=== PATIENT | female | born 1945 | race Caucasian/White ===

== ENCOUNTER → 2016-08-03 | Outpatient (CLI) | payer MEDICARE, OTHER ==
[~2016-08-03] MED LIST: ALENDRONATE SOD70 MG PO; CIPRO500 MG PO; COLACE100 MG PO; CYMBALTA60 MG PO; DEXILANT60 MG PO; FIBER625 MG PO; FLAGYL500 MG PO; FLORASTOR250 MG PO; K-TAB 10MEQ10 MEQ PO; LIVALO4 MG PO; LUNESTA3 MG PO; MIRALAX17 GM PO; MULTAQ400 MG PO; MYRBETRIQ50 MG PO; NEURONTIN300 MG PO; SINGULAIR10 MG PO; ULTRAM50 MG PO; XARELTO20 MG PO
[2016-08-03 16:59] LABS: BASOPHIL # 0.1 K/uL (0.0-0.2); BASOPHIL % 1.1 %; BILIRUBIN URINE NEGATIVE (NEGATIVE); BLOOD URINE 50 /UL (NEGATIVE); EOSINOPHIL # 0.4 K/uL (0.0-0.5); EOSINOPHIL % 4.5 %; GLUCOSE URINE NEGATIVE (NEGATIVE); HEMATOCRIT 39.3 % (33.0-46.0); HEMOGLOBIN 12.8 g/dL (10.0-15.0); IMMATURE GRANULOCYTE % 0.2 %; KETONE URINE NEGATIVE (NEGATIVE); LEUKOCYTES URINE 100 /UL (NEGATIVE); LYMPHOCYTE # 2.3 K/uL (0.8-4.0); LYMPHOCYTE % 27.9 %; MCHC 32.6 gm/dL (32.0-36.5); MCV 95.2 fl (83.0-98.0); MONOCYTE # 0.8 K/uL (0.0-1.0); MPV 9.5 fl (9.4-12.4); NEUTROPHIL # (ANC) 4.7 K/uL (1.8-7.8); NEUTROPHIL % 56.3 %; NITRITE URINE NEGATIVE (NEGATIVE); NRBC % 0 /100WBC (0-0.00); PLATELET COUNT 347 K/uL (150-450); PROTEIN URINE NEGATIVE (NEGATIVE); RBC 4.13 M/uL (3.50-5.50); RDW-CV 12.4 % (11.9-14.6); UROBILINOGEN URINE NORMAL (NORMAL); WBC 8.3 K/uL (4.0-11.0)
[2016-08-03 17:10] LABS: COLOR URINE YELLOW (YELLOW); TURBIDITY URINE CLEAR (CLEAR)
[2016-08-03 17:12] LABS: BACTERIA URINE NEGATIVE (NEGATIVE)
== END | disposition disaster alternative care site (69) ==
LOC: LCNC 16:43
PROVIDERS: Internal Medicine Interventional Cardiology
DX: R53.83 Other fatigue (principal); N39.0 Urinary tract infection, site not specified

== ENCOUNTER → 2016-08-10 | Outpatient (CLI) | payer MEDICARE, OTHER | LOC: LGSMG 12:44 | DX: R31.9 Hematuria, unspecified (principal); E03.9 Hypothyroidism, unspecified | CPT/HCPCS: Q9967 ==

== ENCOUNTER → 2016-08-10 | Outpatient (CLI) | payer MEDICARE, OTHER | END | disposition disaster alternative care site (69) | LOC: GRAD 14:19 | DX: R10.9 Unspecified abdominal pain (principal); K57.92 Diverticulitis of intestine, part unspecified, without perforation or abscess without bleeding; K44.9 Diaphragmatic hernia without obstruction or gangrene; I70.90 Unspecified atherosclerosis; R50.9 Fever, unspecified ==

== ENCOUNTER → 2016-08-16 | Outpatient (CLI) | payer MEDICARE, OTHER | LOC: LGSMG 14:40 | DX: R19.7 Diarrhea, unspecified (principal) ==

== ENCOUNTER 2016-08-21 15:54 | Inpatient (IN) | payer MEDICARE, OTHER ==
[~2016-08-21] VITALS: Ht 160 cm; Wt 64.7 kg
--- NOTE | ~2016-08-21 | HP ---
PATIENT'S NAME: ANTONINO ADAMSON [facility] AGE: 70 Y [address] ROOM: [place] [address] LOCATION: [facility] ADMIT DATE: 08/21/2016 History & Physical DISCHARGE DATE: FAMILY PHYSICIAN: Rosio Guaman MD ATTENDING PHYSICIAN: Shannan ONEILL DATE OF SERVICE: CHIEF COMPLAINT: Abdominal pain and diarrhea. HISTORY OF PRESENT ILLNESS: The patient is a 70-year-old female with past medical history of C diff, AFib, GERD, and obstructive sleep apnea on CPAP, who presents here with abdominal pain and diarrhea. The patient reports that she started having abdominal pain with low-grade fever and loose stools a week ago. The patient was seen here by her primary care physician and had CT of the abdomen that showed evidence of segmental diverticulitis at the sigmoid colon. The patient was started on Bactrim and p.o. Flagyl. However, symptoms did not improve and the patient started having diarrhea. The patient was seen by her primary care physician today and the patient was noted to fail outpatient treatment, as she continued to have abdominal cramping, diarrhea, and low-grade fever. The patient reports that her abdominal pain is mostly around the periumbilical area and it is cramping in quality. She rates the pain 4/10 and is constant in nature. She reports that pain is exacerbated when her abdomen is palpated. She denies any nausea and vomiting. She also denies productive cough, chest pain, shortness of breath, bloody stool, weight loss, and night sweats. The patient reports a history of C diff in the past. MEDICAL HISTORY: 1. Paroxysmal AFib. 2. Fibromyalgia. 3. GERD. 4. Sleep apnea on CPAP. 5. History of C diff. SURGICAL HISTORY: Hysterectomy, tonsillectomy, cataract surgery, and cystoscopy. FAMILY HISTORY: Mother had diabetes mellitus type 2 and history of malignant polyp. SOCIAL HISTORY: Quit smoking in 1992. Denies alcohol use. 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 Lives PATIENT'S NAME: ANTONINO ADAMSON [facility] AGE: 70 Y [address] ROOM: [address] [address] LOCATION: [facility] ADMIT DATE: 08/21/2016 History & Physical DISCHARGE DATE: FAMILY PHYSICIAN: Rosio Guaman MD ATTENDING PHYSICIAN: Shannan ONEILL alone. She has 3 kids. MEDICATIONS: She takes: 1. Multaq. 2. Gabapentin. 3. Xarelto. 4. Duloxetine. 5. Montelukast. 6. Alendronate. ALLERGIES: SHE HAS SEVERE PENICILLIN ALLERGY COMPROMISED WITH BREATHING AND SEVERE RASH. REVIEW OF SYSTEMS: All systems have been reviewed and are negative except for what I mentioned in the HPI. PHYSICAL EXAMINATION: VITAL SIGNS: Temperature 98.6, blood pressure 152/60, respiratory rate 16, and pulse of 62. GENERAL APPEARANCE: The patient is alert and awake, in no acute distress. She does not appear toxic. HEAD: Normocephalic, atraumatic. EYES: Sclerae nonicteric. NOSE: No nasal discharge. MOUTH: Moist oral mucosa. CHEST: Clear to auscultation bilaterally. HEART: Regular rate and rhythm. No murmurs, rubs, or gallops. ABDOMEN: Soft. Mild tenderness diffuse. No guarding. No rebound. Bowel sounds are present. No peritoneal signs. SKIN: Warm to touch. INSURANCE LAW SPECIALIST: Alert and oriented x3. Motor and sensory grossly intact. MUSCULOSKELETAL: Range of motion intact. No obvious joint effusion. LABORATORY DATA: WBC of 9.3, hemoglobin 12.6, and platelets of 376. Sodium of 141, potassium 4, creatinine of 1, BUN of 10, and CO2 of 23. ASSESSMENT AND PLAN: 1. Diverticulitis. The patient is a 70-year-old female with past medical history of Clostridium difficile who presents here with failed outpatient treatment of diverticulitis. The patient was on Bactrim and Flagyl p.o. as an outpatient; however, the patient continued to have these symptoms PATIENT'S NAME: ANTONINO ADAMSON [facility] AGE: 70 Y [address] ROOM: [place] [address] LOCATION: [facility] ADMIT DATE: 08/21/2016 History & Physical DISCHARGE DATE: FAMILY PHYSICIAN: Rosio Guaman MD ATTENDING PHYSICIAN: Shannan ONEILL for 1 week now with involvement of diarrhea. Since the patient is allergic to penicillin, was started aztreonam and Flagyl IV. We will acquire CT abdomen with contrast to further investigate formation of abscess since the patient has failed outpatient treatment for 1 week. Continue IV fluids. 2. Diarrhea. The patient reports recent history of diarrhea. We will acquire Clostridium difficile antigen and stool. She is somewhat at risk for Clostridium difficile since she has a history of Clostridium difficile and currently use of antibiotics. 3. Dehydration, secondary to diarrhea. We will start the patient on IV fluids. 4. Paroxysmal atrial fibrillation. Continue Xarelto and Multaq. 5. Gastroesophageal reflux disease. Continue Protonix. 6. Sleep apnea. Continue CPAP. 7. Fibromyalgia, currently on gabapentin. Continue on the dose of gabapentin. Greater than 60 minutes was spent on the patient care. Greater than 50% of the time was spent in direct patient care and consultation. We will admit the patient for failed outpatient treatment of diverticulitis. We will admit the patient as an inpatient. Code status discussed at the time of admission is full code. MD VIDYA SYED/joshua /[id number] D: 033 T: 813 HISTORY & PHYSICAL
--- NOTE | ~2016-08-21 | DS ---
PATIENT'S NAME: ANTONINO ADAMSON [facility] AGE: 70 Y [address] ROOM: [id number] [place], [place] [address] LOCATION: [facility] ADMIT DATE: 08/21/2016 Discharge Summary DISCHARGE DATE: 08/24/2016 FAMILY PHYSICIAN: Rosio Guaman MD ATTENDING PHYSICIAN: Shannan Albarran ADDENDUM: HOSPITAL COURSE: The patient was admitted to the hospital as noted above with a presumptive diagnosis of acute diverticulitis. Preliminary evaluation including CT scan demonstrated mild diverticulitis by CT scan. She was also noted to have significant stool throughout the colon. Attempts were made to promote bowel hygiene with stool softeners. She only had minimal results with that. She did receive Colace, MiraLAX, and ultimately magnesium citrate. She did subsequently have some results with that and significant symptomatic relief. Her clinical condition gradually improved. She did receive broad-spectrum antibiotic therapy with Flagyl and aztreonam. Eventually, she was switched to oral Flagyl and Cipro and tolerated that well. By the end of the 4th day of her hospital stay, it was felt she would be stable enough for discharge to home with plans for close clinical followup with primary care provider, Dr. Guaman. DISCHARGE INSTRUCTIONS: DIET: Regular as tolerated. ACTIVITY: As tolerated. MEDICATIONS: 1. Flagyl 500 mg p.o. t.i.d. x5 more days. 2. Ciprofloxacin 500 mg p.o. b.i.d. x5 more days. 3. Colace 100 mg p.o. b.i.d. 4. Multaq 400 mg p.o. b.i.d. 5. Cymbalta 60 mg p.o. daily. 6. Gabapentin 300 mg p.o. b.i.d. 7. Singulair 10 mg p.o. q.h.s. 8. Fosamax 70 mg p.o. q.week. 9. Potassium 10 mEq p.o. daily. 10. Xarelto 20 mg p.o. daily. 11. Tramadol 50 mg p.o. daily p.r.n. 12. Myrbetriq 50 mg p.o. daily. 13. Lunesta 3 mg p.o. q.h.s. 14. Livalo 4 mg p.o. q.h.s. PATIENT'S NAME: ANTONINO ADAMSON [facility] AGE: 70 Y [address] ROOM: [address] [address] LOCATION: [facility] ADMIT DATE: 08/21/2016 Discharge Summary DISCHARGE DATE: 08/24/2016 FAMILY PHYSICIAN: Rosio Guaman MD ATTENDING PHYSICIAN: Shannan Albarran 15. MiraLAX 17 g p.o. daily. 16. Dexilant 60 mg p.o. q.h.s. 17. Florastor 250 mg p.o. b.i.d. x30 days. CONDITION ON DISCHARGE: Fair. Total time spent on discharge process 45 minutes. MD RANDALL PADGETT/joshua /[id number] d: 08/25/16 0403 t: 09/04/16 0001, DISCHARGE SUMMARY
--- NOTE | ~2016-08-21 | DS ---
PATIENT'S NAME: ANTONINO ADAMSON [facility] AGE: 70 Y [address] ROOM: [address] [address] LOCATION: [facility] ADMIT DATE: 08/21/2016 Discharge Summary DISCHARGE DATE: 08/24/2016 FAMILY PHYSICIAN: Rosio Guaman MD ATTENDING PHYSICIAN: Shannan Albarran PRIMARY DIAGNOSES: 1. Acute diverticulitis. 2. Obstipation. 3. Urinary retention. 4. Obstructive sleep apnea. 5. Paroxysmal atrial fibrillation. 6. Gastroesophageal reflux disease. OPERATIONS OR PROCEDURES: CT scan of the abdomen pelvis was carried out on 08/21/2016 demonstrating suspected early mild diverticulitis in the proximal sigmoid colon. MD RANDALL PADGETT/joshua /[id number] d: 08/24/162043 t: 09/04/16 0003, DISCHARGE SUMMARY
[2016-08-21 16:39] LABS: BASOPHIL # 0.1 K/uL (0.0-0.2); BASOPHIL % 0.9 %; EOSINOPHIL # 0.2 K/uL (0.0-0.5); EOSINOPHIL % 2.3 %; HEMATOCRIT 37.7 % (33.0-46.0); HEMOGLOBIN 12.6 g/dL (10.0-15.0); IMMATURE GRANULOCYTE % 0.4 %; LYMPHOCYTE # 2.4 K/uL (0.8-4.0); LYMPHOCYTE % 26.3 %; MCHC 33.4 gm/dL (32.0-36.5); MCV 92.9 fl (83.0-98.0); MONOCYTE # 0.9 K/uL (0.0-1.0); MONOCYTE % 9.1 %; MPV 9.3 fl (9.4-12.4); NEUTROPHIL # (ANC) 5.7 K/uL (1.8-7.8); NRBC % 0 /100WBC (0-0.00); PLATELET COUNT 376 K/uL (150-450); RBC 4.06 M/uL (3.50-5.50); WBC 9.3 K/uL (4.0-11.0)
[2016-08-21 16:55] LABS: ALBUMIN 3.6 gm/dL (3.5-5.0); CALCIUM 8.7 mg/dL (8.5-10.5); TOTAL BILIRUBIN 0.4 mg/dL (0.0-1.5); TOTAL PROTEIN 7.3 g/dL (6.0-8.4)
--- NOTE | 2016-08-21 17:05 | NUR ---
PT is 70 y/o female admit for abd cramping/pain and loose stools for hospitalist. Pt reports having increased weakness. Pt alert and oriented x3. Resides at home by herself. Allergy to Pcn and codeine. Red and yellow bracelets on. Hx afib,hypercholest,sleep apnea-Cpap,osteoporosis,fibromyalgia, gerd,hiatal hernia,kidney stone,loose stools recently.
--- NOTE | 2016-08-21 18:09 | NUR ---
Pt admitted from Dr office at 1615 with c/o mid abd pain, diarrhea, low grade temp. Had 8 diarrhea stools yesterday. States none today. Pt also tired, sleeping more than usual. Pt hasn't had nausea. Has been on BRAT diet and has slowed down water intake and tries to take sport drinks per her doctor previous order. Pt is NPO. IV will be started. Dr Albarran here seeing pt at this time. Lung clear, abd soft, BS active. States has to "push" to urinate past few days. Voided in bathroom when got here. Leg pumps on
[2016-08-21] MEDS ORDERED: K-TAB 10MEQ10 MEQ PO (18:23)
[2016-08-21] MEDS ORDERED: MYRBETRIQ50 MG PO (18:23)
[2016-08-21] MEDS ORDERED: ALENDRONATE SOD70 MG PO (18:24)
[2016-08-21] MEDS ORDERED: ULTRAM50 MG PO (18:24)
[2016-08-21] MEDS ORDERED: LUNESTA3 MG PO (18:24)
[2016-08-21] MEDS ORDERED: NEURONTIN300 MG PO (18:25)
[2016-08-21] MEDS ORDERED: CYMBALTA60 MG PO (18:25)
[2016-08-21] MEDS ORDERED: LIVALO4 MG PO (18:25)
[2016-08-21] MEDS ORDERED: MIRALAX17 GM PO (18:25)
[2016-08-21] MEDS ORDERED: MULTAQ400 MG PO (18:25)
[2016-08-21] MEDS ORDERED: DEXILANT60 MG PO (18:26)
[2016-08-21] MEDS ORDERED: FIBER625 MG PO (18:28)
[2016-08-21] MEDS ORDERED: XARELTO20 MG PO (18:34)
[2016-08-21] MEDS ORDERED: SINGULAIR10 MG PO (18:34)
--- NOTE | 2016-08-22 04:41 | NUR ---
Pt AOx3. Pt afebrile this shift. Pt had one bm which was formed. Pt had neg cdif test on the 8th. CT of abdomen performed, 1 L bolus of NS given over 2hrs prior to CT. Pt on flagyl and azactam. Pt up in room w/ standby assist. Pt denies abdominal pain this morning.
[2016-08-22 05:53] LABS: BASOPHIL # 0.1 K/uL (0.0-0.2); BASOPHIL % 0.8 %; EOSINOPHIL # 0.3 K/uL (0.0-0.5); EOSINOPHIL % 5.4 %; HEMATOCRIT 33.8 % (33.0-46.0); IMMATURE GRANULOCYTE % 0.3 %; LYMPHOCYTE # 1.9 K/uL (0.8-4.0); LYMPHOCYTE % 31.4 %; MCH 30.6 pg (27.0-34.0); MCHC 32.5 gm/dL (32.0-36.5); MCV 94.2 fl (83.0-98.0); MONOCYTE # 0.7 K/uL (0.0-1.0); MPV 9.2 fl (9.4-12.4); NEUTROPHIL % 51.1 %; NRBC % 0 /100WBC (0-0.00); PLATELET COUNT 306 K/uL (150-450); RBC 3.59 M/uL (3.50-5.50); RDW-CV 13.2 % (11.9-14.6); WBC 5.9 K/uL (4.0-11.0)
[2016-08-22 06:13] LABS: ALBUMIN 2.7 gm/dL (3.5-5.0); ALK PHOS 89 IU/L (33-138); ALT 17 IU/L (12-78); ANION GAP 10.9 (10.0-19.0); AST 21 IU/L (10-40); BLOOD UREA NITROGEN 7 mg/dL (6-24); CHLORIDE 115 mMol/L (96-110); CO2 22 mMol/L (22-32); CREATININE 0.7 mg/dL (0.5-1.1); ESTIMATED GFR (MDRD EQUATION) > 60; POTASSIUM 3.9 mMol/L (3.7-5.1); SODIUM 144 mMol/L (135-145); TOTAL BILIRUBIN 0.4 mg/dL (0.0-1.5); TOTAL PROTEIN 5.7 g/dL (6.0-8.4)
[2016-08-22 06:40] LABS: CALCIUM 7.3 mg/dL (8.5-10.5)
--- NOTE | 2016-08-22 15:33 | NUR ---
Significant Event: Up to BR/chair SBA. 3 small soft formed BM's. Denies pain. Plans home tomorrow Follow up:
--- NOTE | 2016-08-22 15:56 | NUR ---
SPOKE TO PATIENT REGARDING CM AND OUR ROLE. PATIENT LIVES ALONE IN AN APARTEMENT. SHE REPORTS THAT SHE HAS A SON THAT IS SUPPORTIVE AND HELPS HER NEEDED. SHE DOES NOT ANTICIPATE ANY DISCHARGE NEEDS AT THIS TIME. CM WILL CONT TO FOLLOW NEEDED.
--- NOTE | 2016-08-23 02:00 | NUR ---
PT REFUSED TO WEAR HER HOME CPAP.
--- NOTE | 2016-08-23 04:19 | NUR ---
Pt had 3 formed small bms. Pt complained of abd. cramps in the evening. Miralax ordered bid for two days with first dose being on this shift. Pt denies cramps later in shift. Pt up SBA.
--- NOTE | 2016-08-23 16:46 | NUR ---
Significant Event: PT ALERT AND ORIENTED UP WITH 1 ASSIST AMBULATED IN THE HALLS THIS SHIFT. IV FLUIDS CONT. MAG CITRATE GIVEN PER ORDER THIS AFTERNOON. HAVING DIFFICULTY DGETTING HER STREAM STARTED AND HAS TO PUSH OUT THE URINE. VOIDED FREQ. TRAMADOL THIS AM BUT OK THIS AFTERNOON. HOME TOMORROW IF HAS GOOD BM'S Follow up:
--- NOTE | 2016-08-24 04:31 | NUR ---
Pt had 4 bms this shift,2 moderate loose and 2 scant formed stools. Pt denies abdominal cramping this shift. Pt's abd round, soft and slightly distended on upper half. Bowel sounds active. Pt denies any issues with voiding. Pt voiding larger amounds per void >400, with one 200 cc void. Pt to walk qid. Two walks in the crocker this shift. Pt afebrile.
[2016-08-24 05:50] LABS: BASOPHIL # 0.1 K/uL (0.0-0.2); BASOPHIL % 0.7 %; EOSINOPHIL # 0.2 K/uL (0.0-0.5); EOSINOPHIL % 3.3 %; HEMATOCRIT 33.7 % (33.0-46.0); HEMOGLOBIN 11.1 g/dL (10.0-15.0); IMMATURE GRANULOCYTE % 0.6 %; LYMPHOCYTE # 1.5 K/uL (0.8-4.0); LYMPHOCYTE % 21.2 %; MCH 31.3 pg (27.0-34.0); MCHC 32.9 gm/dL (32.0-36.5); MCV 94.9 fl (83.0-98.0); MONOCYTE # 0.7 K/uL (0.0-1.0); MONOCYTE % 9.9 %; MPV 9.2 fl (9.4-12.4); NEUTROPHIL # (ANC) 4.6 K/uL (1.8-7.8); NEUTROPHIL % 64.3 %; NRBC % 0 /100WBC (0-0.00); PLATELET COUNT 312 K/uL (150-450); RBC 3.55 M/uL (3.50-5.50); RDW-CV 13.2 % (11.9-14.6); WBC 7.1 K/uL (4.0-11.0)
[2016-08-24 06:02] LABS: ANION GAP 8.8 (10.0-19.0); BLOOD UREA NITROGEN 10 mg/dL (6-24); CALCIUM 7.8 mg/dL (8.5-10.5); CHLORIDE 110 mMol/L (96-110); CO2 27 mMol/L (22-32); CREATININE 0.7 mg/dL (0.5-1.1); ESTIMATED GFR (MDRD EQUATION) > 60; POTASSIUM 3.8 mMol/L (3.7-5.1); SODIUM 142 mMol/L (135-145)
[2016-08-24] MEDS ORDERED: CIPRO500 MG PO (15:28)
[2016-08-24] MEDS ORDERED: COLACE100 MG PO (15:28)
[2016-08-24] MEDS ORDERED: FLAGYL500 MG PO (15:31)
[2016-08-24] MEDS ORDERED: FLORASTOR250 MG PO (15:38)
--- NOTE | 2016-08-24 18:44 | NUR ---
Pt discharged to home at 1630. Pt alert, oriented. Pt has had 5 moderate to small diarrhea stools. She has soft, distended abd. BS active. Pt denies pain and states she feels much better. Pt has belongings. She states she understands discharge instructions, home medications, physician followup, when to see dr. Pt discharged to front door with assist. Pt in stable condition.
--- NOTE | 2016-08-24 18:47 | NUR ---
I was preceptor today for student nurse Smitha Machuca this shift and agree with her charting.
== END 2016-08-24 16:25 | disposition disaster alternative care site (69) | DRG 392 ==
LOC: G3N 15:54
PROVIDERS: Nurse Practitioner Family; ADMIT Internal Medicine
DX: K57.32 Diverticulitis of large intestine without perforation or abscess without bleeding (principal); I48.0 Paroxysmal atrial fibrillation; Z99.81 Dependence on supplemental oxygen; D62 Acute posthemorrhagic anemia; E86.0 Dehydration; G47.33 Obstructive sleep apnea (adult) (pediatric); K21.9 Gastro-esophageal reflux disease without esophagitis; R33.9 Retention of urine, unspecified; M79.7 Fibromyalgia; K59.00 Constipation, unspecified; Z88.0 Allergy status to penicillin; Z90.710 Acquired absence of both cervix and uterus; Z87.891 Personal history of nicotine dependence; Z79.01 Long term (current) use of anticoagulants
CPT/HCPCS: J7030; J7040; Q9967

== ENCOUNTER 2016-08-31 22:09 | Emergency (ER) | payer MEDICARE, OTHER ==
--- NOTE | ~2016-08-31 | ER ---
PATIENT'S NAME: ANTONINO ADAMSON [facility] AGE: 70 Y [address] ROOM: [place], [place] [address] LOCATION: ED ADMIT DATE: 08/31/2016 ER/Outpatient Report DISCHARGE DATE: 08/31/2016 FAMILY PHYSICIAN: Rosio Guaman MD ATTENDING PHYSICIAN: Osei Mendoza Admission date and time are documented in the medical record. I saw the patient at 2230 hours. CHIEF COMPLAINT: Abdominal distention, intermittent abdominal cramping, and low-grade fever. HISTORY OF PRESENT ILLNESS: This patient is a 70-year-old female who presented to the emergency room with a kind of generalized intermittent abdominal cramping pain along with the distention and low-grade temperature up to 99.8. This started about 3 hours prior to admission in the emergency room. The patient recently had diagnosis of diverticulitis and was treated with antibiotics. Antibiotics were stopped, I believe a day or 2 ago. The patient also has a past history of C. diff colitis. No urinary symptoms. No nausea or vomiting. No chest pain or shortness of breath. No back pain. No lightheadedness, dizziness, syncope, or near syncope. No headache, eyes, ears, nose, throat, neck, or spine pain. No recent colds, coughs, flus, fever, chills, or sweats other than the diverticulitis. No fall or trauma. No joint or muscle swelling, redness, or pain. No skin eruptions or rash. No history of endocrine problems, neuro changes, or psych issues. HOME MEDICATIONS: See attached medication list. ALLERGIES: PENICILLIN, CODEINE, AND REGLAN. SOCIAL HISTORY: Nonsmoker, nondrinker. SIGNIFICANT PAST MEDICAL HISTORY: Hypertension, fibromyalgia, gastroesophageal reflux, anxiety, depression, paroxysmal atrial fibrillation, C. diff colitis, diverticulosis, diverticulitis, obstructive sleep apnea, on CPAP, remote tobacco abuse, and urinary retention. OPERATIONS: Esophagogastroduodenoscopy, hysterectomy, tonsillectomy, cataract extraction, and cystoscopy. PATIENT'S NAME: ANTONINO ADAMSON [facility] AGE: 70 Y [address] ROOM: [place], [place] [address] LOCATION: ED ADMIT DATE: 08/31/2016 ER/Outpatient Report DISCHARGE DATE: 08/31/2016 FAMILY PHYSICIAN: Rosio Guaman MD ATTENDING PHYSICIAN: Osei Mendoza REVIEW OF SYSTEMS: All systems reviewed by me are negative with the exception of those discussed in the history of present illness. PHYSICAL EXAMINATION: VITAL SIGNS: Temperature 99, pulse 83, respirations 16, blood pressure 138/72, and O2 sat on room air is 95%. HEAD: Normocephalic. EYES, EARS, NOSE, THROAT: Clear. Mucous membranes moist. NECK: Negative. SPINE: Negative. LUNGS: Clear. HEART: Regular. Pulses are palpable. ABDOMEN: Distended, tympanic to percussion, some mild tenderness, but no true guarding or rigidity. Bowel tones present. No organomegaly or abnormal mass palpable. No CVA tenderness. EXTREMITIES: Intact. NEUROVASCULAR: Intact. SKIN: Clear. LABORATORY DATA: Three-way abdominal x-ray showed no perforation, obstruction, or acute lung infiltrate, had increased stool pattern, consistent with constipation and obstipation. White count was 8400, 55 segs, 32 lymphs, 9 monos, 3 eos, 1 baso, hemoglobin is 12.2 with hematocrit 37.2, and platelet count 340,000. CMS was normal except for slightly elevated sodium 146, elevated chloride 111, elevated glucose 109, and low calcium of 8.3. IMPRESSION: Intermittent abdominal cramping with distention and low-grade fever. No evidence of bowel obstruction or ileus. The patient appears to have increased stool pattern throughout consistent with obstipation and constipation. PLAN: The patient was given Dulcolax tabs 2 orally here in the emergency department. Dismissed home. Observation. Activity as tolerated. One bottle of mag citrate orally at home. Clear liquid diet for 24 hours and advance diet as tolerated. Continue present home medications and care. Follow up with personal physician in 3 to 4 days or sooner if needed. Discussion ensued with the patient concerning my findings and recommendations, she understands. PATIENT'S NAME: ANTONINO ADAMSON [facility] AGE: 70 Y [address] ROOM: [place] [address] LOCATION: [facility] ADMIT DATE: 08/31/2016 ER/Outpatient Report DISCHARGE DATE: 08/31/2016 FAMILY PHYSICIAN: Rosio Guaman MD ATTENDING PHYSICIAN: Osei Mendoza MD SDS/modl /[id number] d: 09/01/16 0439 t: 09/01/16 1828, OUTPATIENT REPORT
[2016-08-31 23:21] LABS: BASOPHIL # 0.1 K/uL (0.0-0.2); BASOPHIL % 1.1 %; EOSINOPHIL # 0.2 K/uL (0.0-0.5); EOSINOPHIL % 2.8 %; HEMATOCRIT 37.2 % (33.0-46.0); HEMOGLOBIN 12.2 g/dL (10.0-15.0); IMMATURE GRANULOCYTE % 0.4 %; LYMPHOCYTE # 2.6 K/uL (0.8-4.0); LYMPHOCYTE % 31.6 %; MCH 31.4 pg (27.0-34.0); MCHC 32.8 gm/dL (32.0-36.5); MCV 95.6 fl (83.0-98.0); MONOCYTE # 0.8 K/uL (0.0-1.0); MONOCYTE % 9.1 %; MPV 9.4 fl (9.4-12.4); NEUTROPHIL # (ANC) 4.6 K/uL (1.8-7.8); NRBC % 0 /100WBC (0-0.00); PLATELET COUNT 340 K/uL (150-450); RBC 3.89 M/uL (3.50-5.50); RDW-CV 13.5 % (11.9-14.6); WBC 8.4 K/uL (4.0-11.0)
[2016-08-31 23:39] LABS: ALBUMIN 3.2 gm/dL (3.5-5.0); ALK PHOS 112 IU/L (33-138); ALT 26 IU/L (12-78); ANION GAP 10.2 (10.0-19.0); AST 23 IU/L (10-40); BLOOD UREA NITROGEN 11 mg/dL (6-24); CALCIUM 8.3 mg/dL (8.5-10.5); CHLORIDE 111 mMol/L (96-110); CO2 29 mMol/L (22-32); CREATININE 0.8 mg/dL (0.5-1.1); ESTIMATED GFR (MDRD EQUATION) > 60; POTASSIUM 4.2 mMol/L (3.7-5.1); SODIUM 146 mMol/L (135-145); TOTAL BILIRUBIN 0.2 mg/dL (0.0-1.5); TOTAL PROTEIN 6.6 g/dL (6.0-8.4)
== END 2016-08-31 23:53 | disposition disaster alternative care site (69) ==
LOC: GMED 22:09
PROVIDERS: Emergency Medicine
DX: R14.0 Abdominal distension (gaseous) (principal); R50.9 Fever, unspecified; I10 Essential (primary) hypertension; F41.9 Anxiety disorder, unspecified; F32.9 Major depressive disorder, single episode, unspecified; I48.0 Paroxysmal atrial fibrillation; K57.90 Diverticulosis of intestine, part unspecified, without perforation or abscess without bleeding; G47.33 Obstructive sleep apnea (adult) (pediatric); K21.9 Gastro-esophageal reflux disease without esophagitis; Z88.0 Allergy status to penicillin; Z88.5 Allergy status to narcotic agent; Z88.8 Allergy status to other drugs, medicaments and biological substances; Z79.899 Other long term (current) drug therapy; Z90.710 Acquired absence of both cervix and uterus; Z98.890 Other specified postprocedural states; Z90.89 Acquired absence of other organs; Z98.49 Cataract extraction status, unspecified eye

== ENCOUNTER → 2016-09-03 | Outpatient (CLI) | payer MEDICARE, OTHER | LOC: LGSMG 10:02 | DX: R50.9 Fever, unspecified (principal) ==

== ENCOUNTER → 2016-09-13 | Outpatient (CLI) | payer MEDICARE, OTHER, MEDICAID | END | disposition disaster alternative care site (69) | LOC: GRAD 07:41 | DX: R10.9 Unspecified abdominal pain (principal); K57.30 Diverticulosis of large intestine without perforation or abscess without bleeding ==

== ENCOUNTER → 2016-10-22 | Outpatient (CLI) | payer MEDICARE, OTHER, MEDICAID | LOC: GBCOE 16:00 | DX: Z12.31 Encounter for screening mammogram for malignant neoplasm of breast (principal); R92.1 Mammographic calcification found on diagnostic imaging of breast | CPT/HCPCS: G0202 ==